=== PATIENT | male | born 1960 | race Caucasian/White ===

== ENCOUNTER → 2016-12-26 | Outpatient (CLI) | payer BC ==
--- NOTE | 2016-12-26 14:42 | DIAGNOSTIC IMAGING REPORT ---
THYROID ULTRASOUND CLINICAL HISTORY: Nontoxic multinodular goiter. COMPARISON STUDY: Thyroid ultrasound April 16, 2012. TECHNIQUE: Sonography of the thyroid gland was performed. FINDINGS: The right thyroid lobe measures 5.8 x 1.6 x 2.5 cm and the left lobe measures 6 x 1.2 x 1.8 cm. Multiple thyroid nodules are again noted. The largest is within the lower pole of the right thyroid lobe. This nodule measures approximately 2.4 x 1 x 1.8 cm. This has mildly increased in size since exam of April 16, 2012 when it measured 1.5 x 0.8 x 1.3 cm. Numerous additional thyroid nodules are similar to prior exam. The majority of these are cystic. No overtly suspicious thyroid nodules are identified by sonography. IMPRESSION: Multinodular thyroid gland. Increase in size of the dominant nodule within the lower pole of the right lobe. This nodule does not have suspicious imaging characteristics although is indeterminate and ultrasound-guided fine needle aspiration could be performed. Electronically signed by: Geoffrey Diamond M.D. 12/26/2016 2:41 PM Dictated Date/Time: 12/26/2016 2:36 PM
== END | disposition home or self-care (01) ==
LOC: C.ULTR 13:47
PROVIDERS: ATTEND Nurse Practitioner Family
DX: E04.2 Nontoxic multinodular goiter (principal)

== ENCOUNTER → 2017-01-05 | Outpatient (CLI) | payer BC ==
--- NOTE | 2017-01-05 13:18 | DIAGNOSTIC IMAGING REPORT ---
ULTRASOUND-GUIDED FINE-NEEDLE ASPIRATION BIOPSY RIGHT LOBE OF THE THYROID CLINICAL HISTORY: NON TOXIC MULTINODULAR GOITER enlarging right lobe thyroid nodule COMPARISON STUDY: 12/26/2016 FINDINGS: The risks of the procedure were explained the patient and informed consent was obtained. The patient was prepped in sterile fashion. The skin was anesthetized 1% lidocaine. Under ultrasound guidance, 2 passes into the dominant enlarging right lobe thyroid nodule were performed utilizing a 25-gauge needle. Initial pathologic review indicates satisfactory material for diagnosis. There were no media complications. IMPRESSION: Successful ultrasound-guided fine-needle aspiration biopsy of an enlarging lower pole right lobe thyroid nodule. Electronically signed by: Pipo Miller M.D. 01/05/2017 1:17 PM Dictated Date/Time: 01/05/2017 1:15 PM
== END | disposition home or self-care (01) ==
LOC: C.ULTR 12:22
PROVIDERS: ATTEND Internal Medicine Endocrinology, Diabetes & Metabolism
DX: E04.2 Nontoxic multinodular goiter (principal)

== ENCOUNTER → 2017-01-30 | Outpatient (CLI) | payer BC ==
[2017-01-30 08:20] LABS: ESTIMATED AVERAGE GLUCOSE 163 mg/dl; HA1C FLAG Normal (Normal)
[2017-01-30 08:32] LABS: BLOOD UREA NITROGEN 18 mg/dl (7-18); BUN/CREATININE RATIO 18.4 (10-20); CALCIUM 8.7 mg/dl (8.5-10.1); CARBON DIOXIDE 27 mmol/L (21-32); CHLORIDE 104 mmol/L (98-107); GLUCOSE 235 mg/dl (70-99); POTASSIUM 4.1 mmol/L (3.5-5.1); SODIUM 140 mmol/L (136-145)
[2017-01-30 08:44] LABS: ALB/GLOB RATIO 1.1 (0.9-2); ALKALINE PHOSPHATASE 72 U/L (45-117); ALT/SGPT 33 U/L (12-78); AST/SGOT 19 U/L (15-37); CHOLESTEROL 170 mg/dl (0-200); CHOLESTEROL/HDL RATIO 3.7; HDL CHOLESTEROL 46 mg/dl; LDL CHOLESTEROL CALCULATED 95 mg/dl; TRIGLYCERIDES 144 mg/dl (0-150); VERY LOW DENSITY LIPOPROT CALC 29 mg/dl
== END | disposition home or self-care (01) ==
LOC: C.LABSPEC 10:55
PROVIDERS: ATTEND Nurse Practitioner Family
DX: E11.49 Type 2 diabetes mellitus with other diabetic neurological complication (principal)

== ENCOUNTER → 2017-09-27 | Outpatient (CLI) | payer BC ==
[2017-09-27 16:37] LABS: CHOLESTEROL/HDL RATIO 4.4
[2017-09-27 17:13] LABS: RATIO 5.6 mcg/mg (0-30.0)
[2017-09-28 06:22] LABS: ESTIMATED AVERAGE GLUCOSE 174 mg/dl; HA1C FLAG Normal (Normal)
== END | disposition home or self-care (01) ==
LOC: C.LAB1850 15:02
PROVIDERS: ATTEND Nurse Practitioner Family
DX: E11.49 Type 2 diabetes mellitus with other diabetic neurological complication (principal); E04.2 Nontoxic multinodular goiter

== ENCOUNTER → 2018-01-24 | Outpatient (CLI) | payer BC ==
[2018-01-25 06:52] LABS: HEMOGLOBIN A1C 7.6 % (4.5-5.6)
== END | disposition home or self-care (01) ==
LOC: C.LAB1850 16:09
PROVIDERS: ATTEND Nurse Practitioner Family
DX: E11.42 Type 2 diabetes mellitus with diabetic polyneuropathy (principal)